=== PATIENT | male | born 1950 | race Caucasian/White ===

== ENCOUNTER 2020-03-28 13:57 | Outpatient (REF) | payer MEDICARE, SELFPAY ==
[2020-03-31 17:00] LABS: COVID-19 RT-PCR Result NEGATIVE (Negative)
== END 2020-03-28 14:17 ==
LOC: NCHCN 13:57
PROVIDERS: PCP Nurse Practitioner Family; Visit Provider Nurse Practitioner Family
DX: Z11.59 Encounter for screening for other viral diseases (principal)
CPT/HCPCS: U0003